=== PATIENT | male | born 1995 | race Two or more races ===

== ENCOUNTER 2024-01-05 18:46 | Emergency (ER) | payer SELFPAY ==
[~2024-01-05] VITALS: Ht 172.7 cm; Wt 105.3 kg
[2024-01-05 19:43] VITALS: BP 113/66; PULSE 118; RESP 16; O2SAT 98
[2024-01-05] MEDS ORDERED: ACETAMINOPHEN 325 MG TAB PO ONE (20:00)
[2024-01-05 20:17] LABS: Rapid Strep A Screen-Throat Negative
[2024-01-05 20:36] LABS: Rapid Influenza A Negative (Negative); Rapid Influenza B Positive (Negative)
[2024-01-05 20:37] LABS: COVID19 ANTIGEN SOFIA FIA POSITIVE (NEGATIVE)
== END 2024-01-06 02:12 | disposition left against medical advice (07) ==
LOC: ER 18:46
DX: U07.1 COVID-19 (principal); J02.9 Acute pharyngitis, unspecified; Z53.21 Procedure and treatment not carried out due to patient leaving prior to being seen by health care provider
CPT/HCPCS: 36415; 87070; 87426; 87804; 87880